=== PATIENT | female | born 1975 | race Caucasian/White ===

== ENCOUNTER 2019-12-13 17:06 | Inpatient (IN) | payer OTHER ==
[2019-12-13 17:31] VITALS: BMI 27.3
--- NOTE | 2019-12-13 17:45 | HP ---
CIWA Score Nausea/Vomitin Muscle Tremors: 4-Moderate,w/Arms Extend Anxiety: 3 Agitation: 3 Paroxysmal Sweats: 2 Orientation: 0-Oriented Tacttile Disturbances: 0-None Auditory Disturbances: 0-None Visual Disturbances: 0-None Headache: 3-Moderate CIWA-Ar Total Score: 17 - Admission Criteria OASAS Guidelines: Admission for Medically Managed Detox: Requires at least one of the followin. CIWA greater than 12 2. Seizures within the past 24 hours 3. Delirium tremens within the past 24 hours 4. Hallucinations within the past 24 hours 5. Acute intervention needed for co occurring medical disorder 6. Acute intervention needed for co occurring psychiatric disorder 7. Severe withdrawal that cannot be handled at a lower level of care (continued vomiting, continued diarrhea, abnormal vital signs) requiring intravenous medication and/or fluids 8. Admission ROS [facility] Chief Complaint: Alcohol withdrawal symptoms Allergies/Adverse Reactions: Allergies Allergy/AdvReac Type Severity Reaction Status Date / Time No Known Allergies Allergy Verified 12/13/19 17:38 History of Present Illness: 44 years old female with 4 years of alcohol dependence is seeking admission to detox. This is her first admission to [facility] and patient reports her first detoxification. She drinks 2 x 24oz. Budweiser beer daily and intermittent binge drinking. She started drinking at age 13 and has been drinking daily for the past 4 years due to depression, mental illness, loss of income and being very unhappy. She denies medical history, reports psych. history of depression, anxiety, schizo-affective disorder and bipolar disorder. She reports suicide attempt at age 13, in March 2019 (hospitalized at [facility]) and denies suicidal ideation at this time. She is unemployed on [employer], lives alone in an apartment in the [place] and denies any legal issues. 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 Her urine toxicology is positive for oxy but she denies opioid use insisting that it may be from her psych. medication. Exam Limitations: No Limitations - Ebola screening Have you traveled outside of the country in the last 21 days: No Have you had contact with anyone from an Ebola affected area: No Have you been sick,other than usual withdrawal symptoms: No Do you have a fever: No - Review of Systems Constitutional: Chills, Malaise, Changes in sleep EENT: reports: No Symptoms Reported Respiratory: reports: No Symptoms reported Cardiac: reports: No Symptoms Reported : reports: No Symptoms Reported Musculoskeletal: reports: No Symptoms Reported Integumentary: reports: No Symptoms Reported Neuro: reports: Headache, Tremors Endocrine: reports: No Symptoms Reported Hematology: reports: No Symptoms Reported Psychiatric: reports: Orientated x3, Anxious, Depressed Other Systems: Reviewed and Negative Patient History - Patient Medical History Hx Anemia: No Hx Asthma: No Hx Chronic Obstructive Pulmonary Disease (COPD): No Hx Cancer: No Hx Cardiac Disorders: No Hx Congestive Heart Failure: No Hx Hypertension: No Hx Hypercholesterolemia: No Hx Pacemaker: No HX Cerebrovascular Accident: No Hx Seizures: No Hx Diabetes: No Hx Gastrointestinal Disorders: No Hx Liver Disease: No Hx Genitourinary Disorders: No Hx Sexually Transmitted Disorders: No Hx Renal Disease (ESRD): No Hx Thyroid Disease: No Hx Human Immunodeficiency Virus (HIV): No (Negative 2019) Hx Hepatitis C: No Hx Depression: Yes (+ Anxiety) Hx Suicide Attempt: Yes (Attempt at age 16 & March 2019, denies suicidal ideation at this time) Hx Bipolar Disorder: Yes Hx Schizophrenia: Yes - Patient Surgical History Past Surgical History: Yes Hx Neurologic Surgery: No Hx Cataract Extraction: No Hx Cardiac Surgery: No Hx Lung Surgery: No Hx Breast Surgery: No Hx Breast Biopsy: No Hx Abdominal Surgery: No Hx Appendectomy: No Hx Cholecystectomy: No Hx Genitourinary Surgery: No Hx Section: No Hx Orthopedic Surgery: Yes (Tendon bridle procedure 2009) Hx Hysterectomy: No Anesthesia Reaction: No - PPD History Previous Implant?: Yes Documented Results: Negative w/o proof Implanted On Prior [facility] Admission?: No PPD to be Administered?: Yes - Reproductive History Patient is a Female of Child Bearing Age (11 -55 yrs old): Yes Last Menstrual Period: 11/16/19 Patient : No - Smoking Cessation Smoking history: Current some day smoker Have you smoked in the past 12 months: Yes Aproximately how many cigarettes per day: 1 Hx Chewing Tobacco Use: No Initiated information on smoking cessation: Yes 'Breaking Loose' booklet given: 12/13/19 - Substance & Tx. History Hx Alcohol Use: Yes Hx Substance Use: No Substance Use Type: Alcohol Hx Substance Use Treatment: No - Substances abused Alcohol Substance route: Oral Frequency: Daily Amount used: 2 x 24oz. Budweiser beer and intermittent binge drinking Age of first use: 13 Date of last use: 12/13/19 Admission Physical Exam [facility] - Vital Signs Vital Signs: Vital Signs - 24 hr 12/13/19 17:30 Temperature 97.3 F L Pulse Rate 67 Respiratory 18 Rate Blood Pressure 149/77 - Physical General Appearance: Yes: Moderate Distress, Tremorous, Anxious HEENTM: Yes: Within Normal Limits Respiratory: Yes: Normal Breath Sounds, No Respiratory Distress Neck: Yes: Within Normal Limits Breast: Yes: Breast Exam Deferred Cardiology: Yes: Within Normal Limits Abdominal: Yes: Normal Bowel Sounds, Soft Genitourinary: Yes: Within Normal Limits Back: Yes: Normal Inspection Musculoskeletal: Yes: Within Normal Limits Extremities: Yes: Within Normal Limits Neurological: Yes: Within Normal Limits Integumentary: Yes: Warm Lymphatic: Yes: Within Normal Limits - Diagnostic (1) Alcohol dependence with withdrawal, uncomplicated Current Visit: Yes Status: Acute (2) Nicotine dependence Current Visit: Yes Status: Chronic Qualifiers: Nicotine product type: cigarettes Substance use status: uncomplicated Qualified Code(s): F17.210 - Nicotine dependence, cigarettes, uncomplicated (3) Anxiety Current Visit: Yes Status: Chronic (4) Depression Current Visit: Yes Status: Chronic Qualifiers: Depression Type: unspecified Qualified Code(s): F32.9 - Major depressive disorder, single episode, unspecified (5) Bipolar disorder Current Visit: Yes Status: Chronic Qualifiers: Active/Remission status: currently active (6) Schizo affective schizophrenia Current Visit: Yes Status: Chronic Cleared for Admission [facility] - Detox or Rehab [facility] Level of Care: Medically Managed Detox Regimen/Protocol: Gabrielaium Claeared for Rehab Admission: No Breathalyzer - Breathalyzer Breathalyzer: 0 Urine Drug Screen - Test Device Lot number: [id number] Expiration date: 07/06/21 - Control Is test valid?: Yes - Results Drug screen NEGATIVE: No Urine drug screen results: OXY-Oxycodone Inpatient Rehab Admission - Rehab Decision to Admit Inpatient rehab admission?: No
[2019-12-13] MEDS ORDERED: ACETAMINOPHEN 325 MG TABLET (FP) PO PRN ×2 (18:06)
[2019-12-13] MEDS ORDERED: MAGNESIUM CITRATE 300 ML BOTTLE PO PRN (18:06)
[2019-12-13] MEDS ORDERED: ONDANSETRON *ODT* 4 MG TABLET SL PRN (18:06)
[2019-12-13] MEDS ORDERED: MAGNESIUM HYDROX 2400MG/30ML ORAL SUSPENSION 30 ML CUP PO PRN (18:06)
[2019-12-13] MEDS ORDERED: BISMUTH SUBSALICYLATE 524 MG/30 ML UD PO PRN (18:06)
[2019-12-13] MEDS ORDERED: MAG HYDROX/AL HYDROX/SIMETH 30 ML UNIT-DOSE CUP PO PRN (18:06)
[2019-12-13] MEDS ORDERED: METHOCARBAMOL 500 MG TABLET PO PRN (18:06)
[2019-12-13] MEDS ORDERED: NICOTINE POLACRILEX 2 MG GUM BUC PRN (18:06)
[2019-12-13] MEDS ORDERED: IBUPROFEN 400 MG TABLET (FP) PO PRN (18:06)
[2019-12-13] MEDS ORDERED: MENTHOL/PHENOL 1 EACH UD MM PRN (18:06)
[2019-12-13] MEDS ORDERED: chlordiazePOXIDE HCL 25 MG CAPSULE PO PRN (18:12)
[2019-12-13] MEDS: hydrOXYzine PAMOATE 25 MG CAPSULE (FP) PO PRN ×2 (19:20→22:16)
[2019-12-13] MEDS ORDERED: MELATONIN 5 MG TABLETS PO SCH (22:00)
[2019-12-13] MEDS ORDERED: THIAMINE HCL 100 MG TABLET (FP) PO SCH (22:00)
[2019-12-13] MEDS: chlordiazePOXIDE HCL 25 MG CAPSULE PO SCH (22:16)
[2019-12-14] MEDS: hydrOXYzine PAMOATE 25 MG CAPSULE (FP) PO PRN (01:49)
[2019-12-14] MEDS: chlordiazePOXIDE HCL 25 MG CAPSULE PO SCH (05:56)
[2019-12-14 06:27] VITALS: TEMP 96.9
--- NOTE | 2019-12-14 09:29 | EKG ---
Test Reason : Blood Pressure : / mmHG Vent. Rate : 071 BPM Atrial Rate : 071 BPM P-R Int : 126 ms QRS Dur : 080 ms QT Int : 404 ms P-R-T Axes : 046 018 024 degrees QTc Int : 439 ms NORMAL SINUS RHYTHM NORMAL ECG NO PREVIOUS ECGS AVAILABLE Confirmed by MD DANIEL, SANDRA ([id number]) on 12/14/2019 9:28:52 AM Referred By: Bhumi MADERA Confirmed By:SANDRA SANCHEZ MD
[2019-12-14] MEDS ORDERED: PRENATAL VITAMINS W/ FOLIC ACID TABLET (FP) PO SCH (10:00)
[2019-12-14] MEDS ORDERED: NICOTINE 14 MG/24 HOURS TOPICAL PATCH TD SCH (10:00)
[2019-12-14 10:17] VITALS: BP 131/79; PULSE 100
[2019-12-14 10:34] LABS: ALBUMIN 3.8 g/dl (3.4-5.0); BLOOD UREA NITROGEN 8.6 mg/dL (7-18); CALCIUM 9.2 mg/dL (8.5-10.1); CREATININE 0.7 mg/dL (0.55-1.3); POTASSIUM 4.5 mmol/L (3.5-5.1); TOT PROT 6.8 g/dl (6.4-8.2)
[2019-12-14 10:41] LABS: HEMATOCRIT 39.9 % (32.4-45.2); HEMOGLOBIN 13.3 GM/dL (10.7-15.3); MCH 31.4 pg (25.7-33.7); MCHC 33.3 g/dl (32.0-36.0); MEAN CELL VOLUME 94.4 fl (80-96); MEAN PLT VOLUME 8.7 fl (7.5-11.1); PLATELET COUNT 255 K/MM3 (134-434); RBC 4.22 M/mm3 (3.60-5.2); RDW 13.4 % (11.6-15.6); WHITE BLOOD COUNT 10.5 K/mm3 (4.0-10.0)
--- NOTE | 2019-12-14 10:57 | PN ---
[facility] Progress Note Note: Pt approached com writer stating I want to leave. Pt was asked what was her reason for coming to detox pt states she just needs to go now. Pt was agitated and determined to leave. Pt was made aware of her reason for detox at admission along with counselor, RN and myself and was made aware of risk of relapse, seizures, DT, OD and or loss, pt insisted on leaving and chose to sign out AMA.
--- NOTE | 2019-12-14 10:58 | DS ---
[facility] Detox Discharge Summary Admission Date: 12/13/19 - History Present History: Alcohol Dependence - Physical Exam Results Vital Signs: Vital Signs Temperature 96.9 F L 12/14/19 08:59 Pulse Rate 100 H 12/14/19 08:59 Respiratory Rate 12/14/19 08:59 Blood Pressure 131/79 12/14/19 08:59 O2 Sat by Pulse Oximetry (%) 97 12/14/19 08:59 Pertinent Admission Physical Exam Findings: Vital Signs Temperature 96.9 F L 12/14/19 08:59 Pulse Rate 100 H 12/14/19 08:59 Respiratory Rate 12/14/19 08:59 Blood Pressure 131/79 12/14/19 08:59 O2 Sat by Pulse Oximetry (%) 97 12/14/19 08:59 Laboratory Tests 12/14/19 12/14/19 12/14/19 08:00 08:00 08:00 WBC 10.5 H RBC 4.22 Hgb 13.3 Hct 39.9 MCV 94.4 MCH 31.4 MCHC 33.3 RDW 13.4 Plt Count 255 MPV 8.7 Sodium 137 Potassium 4.5 Chloride 102 Carbon Dioxide 32 Anion Gap 3 L BUN 8.6 Creatinine 0.7 Est GFR (CKD-EPI)AfAm 120.43 Est GFR (CKD-EPI)NonAf 103.90 Random Glucose 94 Calcium 9.2 Total Bilirubin 1.0 AST 22 ALT 27 Alkaline Phosphatase 67 Total Protein 6.8 Albumin 3.8 Syphilis Serology Non-reactive aaox3 ambulating pt chose to sign out AMA. - Treatment Patient has Accepted a Rehab Referral to: pt refused - Medication Discharge Medications: Ambulatory Orders Clonidine HCl 0.1 mg PO HS 12/13/19 [place] Carbonate [Eskalith -] 450 mg PO DAILY 12/13/19 Sertraline HCl 100 mg PO DAILY 12/13/19 Ziprasidone [Geodon] 80 mg PO ONCE 12/13/19 - Diagnosis (1) Alcohol dependence with withdrawal, uncomplicated Status: Acute (2) Anxiety Status: Chronic (3) Bipolar disorder Status: Chronic Qualifiers: Active/Remission status: currently active (4) Depression Status: Chronic Qualifiers: Depression Type: unspecified Qualified Code(s): F32.9 - Major depressive disorder, single episode, unspecified (5) Nicotine dependence Status: Chronic Qualifiers: Nicotine product type: cigarettes Substance use status: uncomplicated Qualified Code(s): F17.210 - Nicotine dependence, cigarettes, uncomplicated (6) Schizo affective schizophrenia Status: Chronic - AMA Did Patient Leave Against Medical Advice: Yes
--- NOTE | 2019-12-14 11:56 | CONSULT ---
[facility] Psychiatric Consult - Data Date of interview: 12/14/19 Identifying data: Ms Falcon is a 44 years old female, unemployed receiving SSI, domiciled living alone in the [place] seeking detox treatment for alcohol Substance Abuse History: Reports history of alcohol use. Refer to addiction counselor's summary for further information Medical History: Significant for tendon bridle procedure in 2009 Psychiatric History: This was patient's firt admission to this facility. She could not be seen because she signed against medical advice and not currently available on the unit
[2019-12-15] MEDS ORDERED: chlordiazePOXIDE HCL 25 MG CAPSULE PO SCH (05:00)
[2019-12-15] MEDS ORDERED: CHLORDIAZEPOXIDE 10 MG, CHLORDIAZEPOXIDE 5 MG PO SCH (05:00)
[2019-12-16] MEDS ORDERED: chlordiazePOXIDE HCL 10 MG CAPSULE PO PRN
[2019-12-16] MEDS ORDERED: chlordiazePOXIDE HCL 10 MG CAPSULE PO SCH (05:00)
[2019-12-17] MEDS ORDERED: chlordiazePOXIDE 5 MG CAPSULE PO ONE (05:00)
== END 2019-12-14 09:33 | disposition left against medical advice (07) | DRG 770 ==
LOC: YASAS 17:06 → Y6N 18:37
PROVIDERS: ADMIT Allergy & Immunology; ATTEND Allergy & Immunology
PROC: HZ2ZZZZ Detoxification Services for Substance Abuse Treatment (ICD-10-PCS; principal; 2019-12-13)
DX: F10.230 Alcohol dependence with withdrawal, uncomplicated (principal); F17.210 Nicotine dependence, cigarettes, uncomplicated; F25.9 Schizoaffective disorder, unspecified; F31.9 Bipolar disorder, unspecified; F41.9 Anxiety disorder, unspecified; Z91.5 Personal history of self-harm
CPT/HCPCS: 36415; 80053; 81025; 85027; 86780; 93005; 93010; U0003